=== PATIENT | male | born 1945 | race Caucasian/White ===

== ENCOUNTER → 2017-05-18 | Day surgery (SDC) | payer MEDICARE ==
[2017-05-15 13:25] LABS: BASOPHILS % 0.3 % (0.0-1.0); EOSINOPHILS # (AUTO) 0.1 (0.0-0.4); EOSINOPHILS % 1.3 % (0.0-6.0); HEMATOCRIT 44.2 % (38.2-49.6); HEMOGLOBIN 14.6 g/dL (14.0-18.0); LYMPHOCYTES # (AUTO) 1.2 (1.0-3.2); LYMPHOCYTES % 20.1 % (18.0-39.1); MEAN CORPUSCULAR HEMOGLOBIN 29.5 pg (28-32); MEAN CORPUSCULAR VOLUME 89.3 fL (81-99); MONOCYTES # (AUTO) 0.4 (0.2-0.8); MONOCYTES % 6.4 % (4.4-11.3); NEUTROPHILS # (AUTO) 4.3 (2.1-6.9); NEUTROPHILS % 71.7 % (38.7-80.0); PLATELET COUNT 208 x10e3/uL (140-360); RED BLOOD COUNT 4.95 x10e6/uL (4.3-5.7)
--- NOTE | 2017-05-15 13:36 | Diagnostic Imaging Report ---
PROCEDURE: Frontal and lateral views of the chest. COMPARISON: None. INDICATIONS: PREOPERATIVE CHEST XRAY FOR GALLBLADDER SURGERY FINDINGS: Lines/tubes: None. Lungs: The lungs are well inflated and clear. There is no evidence of pneumonia or pulmonary edema. Pleura: There is no pleural effusion or pneumothorax. Heart and mediastinum: The heart and the mediastinum are normal. Bones: Generalized demineralization limits evaluation. Degenerative changes of the spine. No acute bony abnormality. IMPRESSION: 1. No acute cardiopulmonary disease. Dictated by: Scottie Robin M.D. on 05/15/2017 at 13:35 Electronically approved by: Scottie Robin M.D. on 05/15/2017 at 13:35
[2017-05-15 13:47] LABS: ALBUMIN 3.6 g/dL (3.5-5.0); ALBUMIN/GLOBULIN RATIO 1.2 (0.8-2.0); ANION GAP 16.6 mmol/L (8-16); CALCIUM 9.6 mg/dL (8.4-10.2); CREATININE, SERUM 1.47 mg/dL (0.72-1.25); POTASSIUM 3.6 mmol/L (3.5-5.1)
[~2017-05-18] MED LIST: ACETAMINOPHEN 1000 MG/100 ML 100 ML IV ONE; ATORVASTATIN PO; BUPIVACAINE 0.25% 30ML SDV INJ ONE; CEFAZOLIN SOD 2 GM/D5W 50ML 50 ML IV ONE; DEXAMETHASONE SOD PHOS INJ 4 MG/ML VIAL ONE; ESMOLOL HCL 100MG/10ML 10 MG/ML VIAL ONE; FENTANYL CITRATE/PF 100MCG/2 ML INJ ONE; GABAPENTIN PO; GLYCOPYRROLATE INJ 1MG/ 5 ML SYR ONE; HYDRALAZINE HCL 20 MG/ML VIAL ONE; HYDROMORPHONE 1MG/1ML INJ ONE; KETOROLAC TROMETHAMINE 30 MG/ML VIAL ONE; LIDOCAINE HCL 2% LOCAL INJ 5 ML SDV VIAL INJ ONE; METFORMIN HCL1000 MG PO; MIDAZOLAM HCL 2 MG/2 ML VIAL ONE; NEOSTIGMINE 5 MG/5ML SYR ONE; ONDANSETRON HCL INJ 2 MG/ML VIAL ONE; PIOGLITAZONE PO; PROPOFOL IV EMULSION 10 MG/ML 20 ML VIAL ONE; ROCURONIUM BROMIDE 10 MG/ML 5ML VIAL ONE; SEVOFLURANE INHAL SOLN 250 ML PEN BTL ONE; VALSARTAN PO
--- OUTSIDE RECORDS SUMMARY | 2017-05-18 05:10 | XMS REPORT ---
Author Author [facility] Address Unknown Phone Unavailable Care Team Providers Care Railroad Inspector Name Role Phone OBDULIO HERRERA Unavailable Unavailable Problems This patient has no known problems. Allergies, Adverse Reactions, Alerts This patient has no known allergies or adverse reactions. Medications This patient has no known medications. Results Test Description Test Time Test Comments Text Results Atomic Results Result Comments CHEST 2 VIEWS [place] [address] Patient Name: DREAD HOUSTON MR # : [id number] : 1945 Age/Sex: 71/M Req #: [id number] Adm Physician: Ordered by: OBDULIO HERRERA MD Report #: [id number] Location: OR Room/Bed: Procedure: [id number] DX/ CHEST 2 VIEWS Exam Date: 05/15/17 Exam Time: 1315 REPORT STATUS: Signed PROCEDURE: Frontal and lateral views of the chest. COMPARISON: None. INDICATIONS: PREOPERATIVE CHEST XRAY FOR GALLBLADDER SURGERY FINDINGS: Lines/tubes: None. Lungs: The lungs are well inflated and clear. There is no evidence of pneumonia or pulmonary edema. Pleura: There is no pleural effusion or pneumothorax. Heart and mediastinum: The heart and the mediastinum are normal. Bones: Generalized demineralization limits evaluation. Degenerative changes of the spine. No acute bony abnormality. IMPRESSION: 1. No acute cardiopulmonary disease. Dictated by: Scottie Robin M.D. on 05/15/2017 at 13:35 Electronically approved by: Scottie Robin M.D. on 05/15/2017 at 13:35 Dictated By: SCOTTIE ROBIN MD [id number] Transcribed By: ADRIAN on 05/15/177 COPY TO: OBDULIO HERRERA MD
--- NOTE | 2017-05-18 08:08 | Operative Report ---
DATE OF PROCEDURE: May 18, 2017 PREOPERATIVE DIAGNOSIS: Chronic cholecystitis cholelithiasis. POSTOPERATIVE DIAGNOSIS: Chronic cholecystitis and cholelithiasis. PROCEDURES 1. Diagnostic laparoscopy. 2. Laparoscopic cholecystectomy. 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 ANESTHESIA: General endotracheal. INDICATIONS AND FINDINGS: Patient is a 71-year-old male who has had recurrent episodes of right upper quadrant abdominal pain. Workup revealed gallstones. At surgery, the patient's gallbladder was distended. Some changes of cholesterolosis. Contained at least 1 stone. Cystic duct was about 3 mm in diameter. Common bile duct was about 6 mm in diameter. Liver, stomach and lower abdomen all appeared normal. TECHNIQUE: After adequate general endotracheal anesthesia and the patient in the supine position, the abdomen was prepped and draped in a sterile fashion with [place] solution. Skin in the umbilicus was infiltrated with 0.5% Marcaine. Incision made just adjacent to the umbilicus. Abdominal wall was elevated and Veress needle was introduced. Pneumoperitoneum was then created. A 10-mm trocar and cannula was then passed through the umbilical wound. A laparoscopic camera was introduced. Initial laparoscopy revealed the liver, stomach and lower abdomen all appeared normal. A 10-mm trocar and cannula was placed in the epigastrium, and two 5-mm trocars and cannulas were placed in the right upper quadrant. These were placed under direct vision. Fundus of the gallbladder was grasped and tracked superiorly. Neck of the gallbladder was grasped and retracted laterally. Peritoneum over the neck of the gallbladder was incised. The gallbladder cystic duct junction was dissected free. Cystic artery was also dissected free. The neck of the gallbladder was completely dissected free. Cystic artery was divided between Hemoclips close to the gallbladder. Cystic duct also divided between Hemoclips with 3 clips being left on the common bile duct side. The posterior branch of the cystic artery was also divided between Hemoclips close to the gallbladder. The gallbladder was dissected free from the liver using scissors electrocautery. Once it was entirely free, it was placed into an Endopouch and brought out through the epigastric cannula. It contained at least 1 stone. Gallbladder bed was inspected for hemostasis, which was seen to be adequate. It was irrigated with saline. All fluid aspirated. Inspected once again for hemostasis, which was seen to be adequate. Instruments and cannulas were then removed. Pneumoperitoneum was evacuated. Wounds were then closed. Fascia in the umbilical and epigastric wound closed with 0 Vicryl. Skin to all wounds closed with quinton. Sterile dressings applied to each wound. The patient tolerated the procedure well. Estimated blood loss was 10 mL. There were no complications. All counts were correct. The patient was taken to the recovery room in satisfactory condition. Job#: [id number] RI cc:NAY RODRIGUEZ MD
== END | disposition home or self-care (01) ==
LOC: OR 05:08
PROVIDERS: ATTEND Surgery
DX: K80.10 Calculus of gallbladder with chronic cholecystitis without obstruction (principal); I10 Essential (primary) hypertension; E11.9 Type 2 diabetes mellitus without complications; B15.9 Hepatitis A without hepatic coma; R06.83 Snoring; F17.290 Nicotine dependence, other tobacco product, uncomplicated; Z01.810 Encounter for preprocedural cardiovascular examination; Z01.812 Encounter for preprocedural laboratory examination; Z01.818 Encounter for other preprocedural examination
CPT/HCPCS: 36415 ×2; 47562; 71046; 80053; 82948; 85025; 88304; 93005; J0360; J1100; J1170; J1885; J2001; J2250; J2405